=== PATIENT | female | born 1930 | race Caucasian/White ===

== ENCOUNTER 2016-12-29 23:28 | Emergency (ER) | payer MEDICARE, OTHER ==
[~2016-12-29] VITALS: Ht 167.6 cm; Wt 83.9 kg
[~2016-12-29 23:28] MED LIST: ATIVAN0.5 M1 PO; CELEXA40 MG PO; NAMZARIC 28 MG1 EACH PO; SEROQUEL25 MG PO; TYLENOL500 MG PO; VITAMIN B-121000 MCG PO
== END 2016-12-30 00:59 | disposition short-term general hospital (02) ==
LOC: ER 23:28
DX: S00.81XA Abrasion of other part of head, initial encounter (principal); M25.522 Pain in left elbow; W18.39XA Other fall on same level, initial encounter; Y92.002 Bathroom of unspecified non-institutional (private) residence as the place of occurrence of the external cause; G30.9 Alzheimer's disease, unspecified; Z88.0 Allergy status to penicillin; Z79.899 Other long term (current) drug therapy; F41.9 Anxiety disorder, unspecified; I10 Essential (primary) hypertension; Z90.710 Acquired absence of both cervix and uterus